=== PATIENT | female | born 1990 | race Caucasian/White ===

== ENCOUNTER 2019-10-11 01:29 | Emergency (ER) | payer SELFPAY ==
--- NOTE | ~2019-10-11 | XR_ITS ---
EXAMINATION: XR chest 2V DATE: 10/11/2019 02:00 INDICATION: Cough and shortness of breath TECHNIQUE: PA and lateral views of the chest are obtained. COMPARISON: 06/29/2018 FINDINGS: The lungs are free of acute opacities. There is no pleural effusion or pneumothorax. The ca rdiomediastinal silhouette is normal. The visualized bones and soft tissues are unremarkable. IMPRESSION: 1. No acute cardiopulmonary abnormality. Reviewed, dictated and finalized at location A.
[2019-10-11 01:30] VITALS: BP 178/103; PULSE 90; RESP 16; TEMP 36.1; O2SAT 100
[2019-10-11 01:41] VITALS: O2SAT 99
--- NOTE | 2019-10-11 01:43 | ECG_ITS ---
Measurements Intervals [place] Rate: 75 P: 41 AL: 186 QRS: 10 QRSD: 94 T: 25 QT: 368 QTc: 412 Interpretive Statements SINUS RHYTHM DELAYED PRECORDIAL R/S TRANSITION ST ELEVATION IN ANTEROLATERAL LEADS- PROBABLY EARLY REPOLARIZATION BASELINE WANDER- I, II, V4-V6 BORDERLINE ECG Electronically Signed On 10-11-2019 10:03:37 CDT by Jarad Vallejo D.O.
[2019-10-11 01:54] LABS: Basophils Percent Auto 0.4 % (0.2-1.2); Eosinophils Absolute Auto 0.2 K/mm3 (0-0.3); Eosinophils Percent Auto 2.2 % (0-4.4); Hematocrit 43.6 % (37.0-47.0); Immature Granulocyte Absolute 0.03 K/mm3 (0.00-0.031); Immature Granulocyte Percent A 0.3 % (0-0.5); Lymphocytes Absolute Auto 2.76 K/mm3 (0.9-3.2); Lymphocytes Percent Auto 26.3 % (18.3-44.2); Mean Corpuscular HGB Conc 34.4 g/dl (32-36); Mean Corpuscular Volume 84.3 fl (80-100); Monocytes Absolute Auto 0.8 K/mm3 (0.1-0.6); Monocytes Percent Auto 7.3 % (2.6-8.5); Neutrophils Absolute Auto 6.7 K/mm3 (1.3-6.7); Neutrophils Percent Auto 63.5 % (45.5-73.1); Platelet Count Result 246 k/mm3 (150-375); Red Blood Count 5.17 M/mm3 (4.2-5.4); Red Cell Distribution Width 13.2 % (11.5-14.5); White Blood Count 10.5 K/mm3 (4.5-10.0)
[2019-10-11 02:16] LABS: Anion Gap 9 mmol/L (8-16); Blood Urea Nitrogen 13 mg/dL (7-17); Calcium 9.4 mg/dL (8.4-10.2); Carbon Dioxide 25 mmol/L (22-30); Chloride 105 mmol/L (98-107); Estimated Glomerular Filt Rate > 60; Glucose 108 mg/dL (65-105); Potassium 3.9 mmol/L (3.4-5.0); Sodium 139 mmol/L (137-145)
--- NOTE | 2019-10-11 04:57 | ED.URI ---
HPI - URI/Sore Throat General Chief Complaint: Upper Respiratory Infection Stated Complaint: chest congestion Time Seen by Provider: 10/11/19 03:02 History of Present Illness HPI Narrative: Patient is a 29-year-old female who presents the ER with cough and shortness of breath. Reports she is had a URI for several days with congestion postnasal drip. Feels like it moved down into her chest. Brother had similar symptoms. He is not known to be COVID positive. No change in smell or taste. Reports she gets bronchitis yearly and this feels similar. Related Data Allergies Allergy/AdvReac Type Severity Reaction Status Date / Time No Known Allergies Allergy Unverified 06/29/18 18:36 Review of Systems Review of Systems: All systems reviewed & are unremarkable except as noted in HPI and below Constitutional: Constitutional: Denies chills, Denies fever(s) and Denies weakness ENT: Reports nasal congestion and Denies sore throat Cardiovascular: Cardiovascular: Denies chest pain and Denies radiating jaw, neck or arm pain Respiratory: Respiratory: Reports cough, Denies dyspnea and Reports wheezing PMFSH Past Medical History Medical History (Updated 10/11/19 @ 05:02 by Gareth Lemus MD) Anxiety Depression Hypertension Surgical History Surgical History (Updated 10/11/19 @ 04:59 by Gareth Lemus MD) No pertinent past surgical history Family History Family History (Updated 01/26/17 @ 09:13 by DOCTOR UNKNOWN) Other Hypertension Social History Social History Smoking status: Current every day smoker Alcohol intake: current Gender identity (if verbalized by the patient): Female Exam Narrative: Exam Narrative: GENERAL: Well-appearing, well-nourished, and in no acute distress. HEAD: Normocephalic, atraumatic. ENT: Mucous membranes moist. CHEST: Clear to auscultation. No respiratory distress. HEART: Regular rate and rhythm. Normal peripheral pulses. EXTREMITIES: Normal range of motion. No edema. NEURO: Alert and oriented x3. PSYCH: Normal mood and affect. Course Course Emergency Course: Unremarkable evaluation due to patient symptoms similar to previous pancreas we will start her on albuterol and prednisone for home. Vital Signs Vital signs: Vital Signs Temperature 97 F L 10/11/19 01:30 Pulse Rate 90 10/11/19 01:30 Respiratory Rate 16 10/11/19 01:30 Blood Pressure 178/103 H 10/11/19 01:30 Pulse Oximetry 100 10/11/19 01:30 Temperature 97 F L 10/11/19 01:30 Pulse Rate 90 10/11/19 01:30 Respiratory Rate 16 10/11/19 01:30 Blood Pressure 178/103 H 10/11/19 01:30 Pulse Oximetry 99 10/11/19 01:41 MDM - URI/Sore Throat Lab Data Result diagrams: 10/11/19 01:45 10/11/19 01:45 Labs: Lab Results 10/11/19 10/11/19 Range/Units 01:45 01:45 WBC 10.5 H (4.5-10.0) K/mm3 RBC 5.17 (4.2-5.4) M/mm3 Hgb 15.0 (12.0-15.0) g/dL Hct 43.6 (37.0-47.0) % MCV 84.3 (80-100) fl MCH 29.0 (26-34) pg MCHC 34.4 (32-36) g/dl RDW 13.2 (11.5-14.5) % Plt Count 246 (150-375) k/mm3 MPV 10.0 (7.4-10.4) fl Immature Gran % (Auto) 0.3 (0-0.5) % Neut % (Auto) 63.5 (45.5-73.1) % Lymph % (Auto) 26.3 (18.3-44.2) % Garden % (Auto) 7.3 (2.6-8.5) % Eos % (Auto) 2.2 (0-4.4) % Baso % (Auto) 0.4 (0.2-1.2) % Lymph # (Auto) 2.76 (0.9-3.2) K/mm3 Garden # (Auto) 0.8 H (0.1-0.6) K/mm3 Eos # (Auto) 0.2 (0-0.3) K/mm3 Baso # (Auto) 0.0 (0.0-0.1) K/mm3 Abs Immat Gran (auto) 0.03 (0.00-0.031) K/mm3 Absolute Neuts (auto) 6.7 (1.3-6.7) K/mm3 Absolute Nucleated RBC 0.0 (0.0-0.012) K/mm3 Nucleated RBC % 0.0 (0.0-0.2) % Sodium 139 (137-145) mmol/L Potassium 3.9 (3.4-5.0) mmol/L Chloride 105 (98-107) mmol/L Carbon Dioxide 25 (22-30) mmol/L Anion Gap 9 (8-16) mmol/L BUN 13 (7-17) mg/dL Creatinine 0.50 L (0.7-1.0) mg/dL Estim Creat Clear Calc Not Reporta
[2019-10-11 05:13] VITALS: BP 132/78; PULSE 73; RESP 16; O2SAT 99
== END 2019-10-11 05:14 | disposition home or self-care (01) ==
PROVIDERS: Emergency Provider Emergency Medicine
DX: J40 Bronchitis, not specified as acute or chronic (principal); I10 Essential (primary) hypertension; F17.200 Nicotine dependence, unspecified, uncomplicated; R94.31 Abnormal electrocardiogram [ECG] [EKG]
CPT/HCPCS: 36415; 71046; 80048; 85025; 93005; 99284

== ENCOUNTER 2021-01-02 02:37 | Emergency (ER) | payer SELFPAY ==
[2021-01-02 02:43] VITALS: BP 149/106; PULSE 77; RESP 18; TEMP 36.5; O2SAT 98
--- NOTE | 2021-01-02 03:34 | ED.PSYCH ---
HPI - Psych General Chief Complaint: Psychiatric Symptoms Stated Complaint: Anxiety, depression Time Seen by Provider: 01/02/21 02:44 Source: patient and RN notes reviewed Mode of arrival: ambulatory Limitations: no limitations History of Present Illness HPI Narrative: This is a 30 year old female who presents for anxiety and depression. She reports history of anxiety and depression for years. Tonight she came to ER because she was having palpitations, racing thoughts, extremity tingling. She felt like she was having panic attacks. She also reports depression over the past 2- 3 months. She is having spells of crying and sleeping alot. She states she does not have suicidal thoughts or homicidal thoughts. She has no plan of harming herself. She was placed on Zoloft 2 years ago but she only took the medication for 2 days. She denies drinking alcohol or drug use. She does smoke cigarettes. Related Data Allergies Allergy/AdvReac Type Severity Reaction Status Date / Time No Known Allergies Allergy Unverified 01/02/21 02:53 Review of Systems Review of Systems: All systems reviewed & are unremarkable except as noted in HPI and below PMFSH Past Medical History Medical History Anxiety Depression Hypertension Surgical History Surgical History No pertinent past surgical history Family History Family History (Updated 01/26/17 @ 09:13 by DOCTOR UNKNOWN) Other Hypertension Social History Social History Smoking status: Current every day smoker Alcohol intake: current Substance use type: does not use Gender identity (if verbalized by the patient): Female Exam Const: General: no acute distress and alert Orientation/consciousness: patient oriented x3 HENMT: Head: normocephalic and atraumatic Face and sinus: face symmetric Mouth: Yes Normal oral and palatal mucosa present, Yes lip normal, Yes tongue normal, Yes oropharynx normal and Yes moist mucous membranes Throat: posterior oropharynx normal, tonsils normal and uvula midline Eyes: EOM: EOMs intact bilaterally Resp: Effort & Inspection: normal respiratory effort and no retractions Auscultation: clear to auscultation bilaterally Cardio: Rate: regular rate Rhythm: regular rhythm Heart sounds: no murmurs GI: GI Palp: Yes Soft to palpation, No Tenderness to palpation present (GI) and No Guarding due to palpation present (GI) Auscultation: normal bowel sounds Skin: General skin exam: normal color Rashes: no rashes Neuro: General: moves all extremities and CN's II-XI intact bilaterally Extrem: General: normal to inspection Psych: Appearance: grossly normal and well kempt Mental Status: mental status grossly normal Affect: normal affect Attitude: cooperative Thought content: Yes Normal thought content present Course Reevaluation(s) Reevaluation #1: Patient is not suicidal or homicidal. She does not need inpatient evaluation at this time. She will be given resources and given vistaril. I stressed that she needs to follow up with counselor, primary care provider or psychiatrist. Date: 01/02/21 Time: 03:38 Vital Signs Vital signs: Vital Signs Temperature 97.7 F 01/02/21 02:43 Pulse Rate 77 01/02/21 02:43 Respiratory Rate 18 01/02/21 02:43 Blood Pressure 149/106 H 01/02/21 02:43 Pulse Oximetry 98 01/02/21 02:43 Temperature 97.7 F 01/02/21 02:43 Pulse Rate 80 01/02/21 03:52 Respiratory Rate 16 01/02/21 03:52 Blood Pressure 133/95 H 01/02/21 03:52 Pulse Oximetry 99 01/02/21 03:52 Discharge Plan Discharge Clinical Impression: Anxiety Patient Disposition: Home, Self-Care Condition: Stable Instructions: Antibiotic Form, Depression (ED), Anxiety (ED) Additional Instructions: Please follow up with given resources in order to get help. If you start having suicidal thoughts o
[2021-01-02 03:52] VITALS: BP 133/95; PULSE 80; RESP 16; O2SAT 99
== END 2021-01-02 03:52 | disposition home or self-care (01) ==
PROVIDERS: Emergency Provider General Practice
DX: F41.9 Anxiety disorder, unspecified (principal); F32.A Depression, unspecified; I10 Essential (primary) hypertension; F17.210 Nicotine dependence, cigarettes, uncomplicated
CPT/HCPCS: 99283

== ENCOUNTER 2021-04-29 19:21 | Emergency (ER) | payer MEDICAID, SELFPAY ==
--- NOTE | ~2021-04-29 | XR_ITS ---
EXAMINATION: XR chest 2V EXAM DATE: 04/29/2021 20:28 INDICATION: Strep throat, congestion, tightness, mid chest pain persisting. TECHNIQUE: Frontal and lateral projections of the chest obtained and reviewed. Comparison is made to prior examination from 10/11/2019. FINDINGS: The lungs are clear. There are no pleural effusions. The cardiomediastinal silhouette is within normal limits. There is no pneumothorax suspected. The bones and soft tissues are unremarkab le. IMPRESSION: No acute cardiopulmonary findings. Reviewed, dictated and finalized at location G.
[2021-04-29 19:53] VITALS: BP 126/74; PULSE 91; RESP 18; TEMP 36.7; O2SAT 100
[2021-04-29 20:12] VITALS: BP 122/79; PULSE 74; RESP 25; O2SAT 96
[2021-04-29 20:18] VITALS: O2SAT 97
--- NOTE | 2021-04-29 20:39 | ED.URI ---
HPI - URI/Sore Throat General Chief Complaint: Upper Respiratory Infection Stated Complaint: recent strep diagnosis, has increased congestion Time Seen by Provider: 04/29/21 20:08 Source: patient Mode of arrival: ambulatory Limitations: no limitations History of Present Illness HPI Narrative: Patient is a 31-year-old female complaining of chest congestion, cough, productive, white/yellow sputum, and sore throat that started this past week, was seen at [facility], prescribe amoxicillin after testing positive for strep. Patient states that she is feeling better but I just want to make sure I do not need any more antibiotics , which she has 3 more days worth. Patient denies any chest pain, shortness of breath, abdominal pain, nausea, vomiting, diarrhea, fever or chills. Related Data Allergies Allergy/AdvReac Type Severity Reaction Status Date / Time No Known Allergies Allergy Verified 04/29/21 19:58 Review of Systems Review of Systems: Per HPI All systems reviewed & are unremarkable except as noted in HPI and below PMFSH Past Medical History Medical History Anxiety Depression Hypertension Surgical History Surgical History No pertinent past surgical history Family History Family History Other Hypertension Social History Social History Smoking status: Current every day smoker Alcohol intake: current Substance use type: does not use Gender identity (if verbalized by the patient): Female Exam Const: General: cooperative, healthy appearing, comfortable, no acute distress, well developed, alert and awake; No confusion Orientation/consciousness: oriented to person, oriented to place, oriented to time, patient oriented x3 and No confusion Limitations: no limitations HENMT: Head: normal to inspection, normocephalic and atraumatic Ears: hearing grossly normal bilaterally, TM normal on the right and TM normal on the left General nose exam: Normal external nose present, Normal nares present and No nasal discharge present Face and sinus: normal facial exam Mouth: Yes Normal oral and palatal mucosa present, Yes lip normal, Yes tongue normal and Yes oropharynx normal Throat: posterior oropharynx normal, tonsils normal and uvula midline Eyes: General: appearance normal, both eyes and all related structures Pupils: Equal, round and reactive pupils present EOM: EOMs intact bilaterally Neck: Neck: normal visual inspection, full ROM, no lymphadenopathy and no meningeal signs Chest: Chest palpation & inspection: normal inspection of the chest Resp: Effort & Inspection: normal respiratory effort, able to speak in complete sentences, no respiratory distress and not tachypneic Auscultation: clear to auscultation bilaterally, no crackles, no rales, no rhonchi and no wheezes Cardio: Rate: regular rate Rhythm: regular rhythm GI: Inspection: normal to inspection GI Palp: No abdominal tenderness, Yes Soft to palpation, No Tenderness to palpation present (GI), No Guarding due to palpation present (GI), No Rigid due to palpation and No Rebound tenderness present Auscultation: normal bowel sounds : General: Yes no CVA tenderness Back/Spine/Pelvis: Back: no CVA tenderness Skin: General skin exam: normal color, no rashes or lesions noted, elasticity normal and turgor normal Neuro: General: oriented to person, oriented to place, oriented to time, patient oriented x3, tone normal, moves all extremities, Normal light touch and pain sensation, no meningeal signs, no focal motor deficits, CN's II-XI intact bilaterally and No confusion Cranial nerves: Yes Equal, round and reactive pupils present Speech: No Abnormal speech present Sensory Exam: No Sensory deficit (Neuro) Extrem: General: normal to inspection,
[2021-04-29 21:26] VITALS: PULSE 77; RESP 19; O2SAT 97
[2021-04-29 21:30] VITALS: PULSE 78; RESP 22; O2SAT 98
== END 2021-04-29 22:22 | disposition home or self-care (01) ==
LOC: ANHED 20:49
PROVIDERS: Emergency Provider Emergency Medicine
DX: J06.9 Acute upper respiratory infection, unspecified (principal); I10 Essential (primary) hypertension; F41.9 Anxiety disorder, unspecified; F32.A Depression, unspecified; F17.200 Nicotine dependence, unspecified, uncomplicated
CPT/HCPCS: 71046; 99283

== ENCOUNTER 2021-11-20 09:34 | Emergency (ER) | payer BC, SELFPAY ==
--- NOTE | ~2021-11-20 | XR_ITS ---
EXAMINATION: XR chest 1V portable DATE: 11/20/2021 10:11 INDICATION: Upper respiratory infection. Cough. TECHNIQUE: A single frontal view of the chest was obtained. COMPARISON: Chest 2 views 04/29/2021, CT abdomen and pelvis 06/29/2018 FINDINGS: The chest demonstrates clear lungs without pneumonia, pleural effusion, or pneumothorax. Th e heart size is normal. IMPRESSION: 1. No acute cardiopulmonary disease. Reviewed, dictated and finalized at location A.
[2021-11-20 09:50] VITALS: BP 129/83; PULSE 73; RESP 16; TEMP 37.1; O2SAT 98
--- NOTE | 2021-11-20 10:08 | ED.URI ---
HPI - URI/Sore Throat General Chief Complaint: Upper Respiratory Infection <CANDY Vargas Last Filed: 11/20/21 10:45> Stated Complaint: URI <CANDY Vargas Last Filed: 11/20/21 10:45> Time Seen by Provider: 11/20/21 09:44 <CANDY Vargas Last Filed: 11/20/21 10:45> Source: patient <CANDY Vargas Last Filed: 11/20/21 10:45> Mode of arrival: ambulatory <CANDY Vargas Last Filed: 11/20/21 10:45> Limitations: no limitations <CANDY Vargas Last Filed: 11/20/21 10:45> History of Present Illness HPI Narrative: Patient is a 31-year-old female who presents to the ED with report of upper respiratory symptoms. Patient reports having symptoms since last , 1 week ago. She complains of myalgias, headache, intermittent nausea, cough, congestion, rib pain with coughing. She denies sore throat, fever, chest pain, difficulty breathing. She has tried several OTC tx's w/o relief. Patient tested negative for Strep/COVID at outside hospital 3 days ago. Patient states she has the symptoms several times a year and requires amoxicillin and prednisone. <CANDY Vargas Last Filed: 11/20/21 10:45> Related Data Home Medications: Home Medications Medication Instructions Recorded Confirmed clonazepam 0.5 mg tablet mg 11/20/21 lisinopril 10 mg tablet mg 11/20/21 pantoprazole 40 mg tablet,delayed mg PO 11/20/21 release risperidone 3 mg tablet mg 11/20/21 sertraline 100 mg tablet mg 11/20/21 <CANDY Vargas Last Filed: 11/20/21 10:45> Allergies/Adverse Reactions: Allergies Allergy/AdvReac Type Severity Reaction Status Date / Time No Known Allergies Allergy Verified 11/20/21 09:53 <CANDY Vargas Last Filed: 11/20/21 10:45> Review of Systems Review of Systems: CONSTITUTIONAL: Denies fever, chills, or sweats. ENT: Reports congestion. Denies sore throat. CARDIOVASCULAR: Denies chest pain. RESPIRATORY: Reports cough. Denies dyspnea. GASTROINTESTINAL: Reports nausea. Denies abdominal pain, vomiting, or diarrhea. MUSCULOSKELETAL: Reports rib pain with coughing, myalgias. NEUROLOGIC: Reports headache. Denies numbness or weakness. <Teresa Donahue PA-C - Last Filed: 11/20/21 10:45> All systems reviewed & are unremarkable except as noted in HPI and below <Teresa Donahue PA-C - Last Filed: 11/20/21 10:45> [facility] Past Medical History Medical History: Medical History Anxiety Depression Hypertension <Teresa Donahue PA-C - Last Filed: 11/20/21 10:45> Surgical History Surgical History: Surgical History No pertinent past surgical history <Teresa Donahue PA-C - Last Filed: 11/20/21 10:45> Family History Family History: Family History Other Hypertension <Teresa Donahue PA-C - Last Filed: 11/20/21 10:45> Social History Social History: Social History Smoking status: Current every day smoker Alcohol intake: current Substance use type: does not use Gender identity (if verbalized by the patient): Female <Teresa Donahue PA-C - Last Filed: 11/20/21 10:45> Exam Narrative: GENERAL: Well appearing, obese, non-toxic, in no acute distress. HEAD: Normocephalic, atraumatic. EYES: PERRL/EOMI, conjunctivae clear bilaterally. No drainage or injection. NOSE: Normal, no drainage. THROAT: Pharynx clear, no exudate. MMs moist. NECK: Supple. No adenopathy, no masses. RESPIRATORY: Airway patent, respirations nonlabored. Clear to auscultation bilaterally, no rales, rhonchi, wheezing. CARDIOVASCULAR: Regular rate and rhythm without murmurs, rubs, or gallops.
[2021-11-20] MEDS: IBUPROFEN 600 MG TABLET PO (11:04)
[2021-11-20 11:05] LABS: SARS-CoV-2 RNA PCR Negative
[2021-11-20 11:09] VITALS: RESP 16
== END 2021-11-20 11:09 | disposition home or self-care (01) ==
PROVIDERS: Physician Assistant; Emergency Provider Emergency Medicine
DX: J06.9 Acute upper respiratory infection, unspecified (principal); Z20.822 Contact with and (suspected) exposure to COVID-19; I10 Essential (primary) hypertension; F41.9 Anxiety disorder, unspecified; F32.A Depression, unspecified; F17.200 Nicotine dependence, unspecified, uncomplicated
CPT/HCPCS: 71045; 99283; A9270; C9803; U0003; U0005

== ENCOUNTER 2021-12-24 01:08 | Emergency (ER) | payer BC, SELFPAY ==
--- NOTE | ~2021-12-24 | XR_ITS ---
EXAMINATION: XR chest 2V DATE: 12/24/2021 01:42 INDICATION: Chest pain. Shortness of breath. Cough. TECHNIQUE: Frontal and lateral views of the chest were obtained. COMPARISON: Chest single view 11/20/2021, CT abdomen and pelvis 06/29/2018 FINDINGS: There is no pneumonia, pleural effusion, or pneumothorax. The heart size is normal. IMPRESSION: 1. No acute cardiopulmonary disease. Reviewed, dictated and finalized at location A. L ENGINEER
--- NOTE | 2021-12-24 01:09 | ECG_ITS ---
Measurements Intervals [place] Rate: 83 P: 27 MD: 164 QRS: 24 QRSD: 97 T: 48 QT: 359 QTc: 424 Interpretive Statements SINUS RHYTHM BASELINE ARTIFACT- V4-V5 NORMAL ECG COMPARED TO ECG 10/11/2019 01:46:38 NO SIGNIFICANT CHANGES Electronically Signed On 12-24-2021 12:04:54 OWNER OPERATOR by Jarad Vallejo D.O.
[2021-12-24 01:19] VITALS: BP 142/87; PULSE 90; RESP 15; TEMP 36.4; O2SAT 98
--- NOTE | 2021-12-24 01:58 | ED.GENADULT ---
HPI - General Adult General Chief complaint: Upper Respiratory Infection Stated complaint: chest tightness, SOB, coughing Time Seen by Provider: 12/24/21 01:48 History of Present Illness HPI narrative: 31-year-old female history of hypertension schizoaffective disorder presents to the emergency room for evaluation of cough, sinus congestion, postnasal drip for 4 days. Patient states she has been taking Mucinex and Tylenol for the cough. Reports the cough is painful and has been taking a lot of clear phlegm. Patient reports rib cage pain in her flanks bilaterally denies fever Related Data Home Medications Medication Instructions Recorded Confirmed clonazepam 0.5 mg tablet mg 11/20/21 lisinopril 10 mg tablet mg 11/20/21 pantoprazole 40 mg tablet,delayed mg PO 11/20/21 release risperidone 3 mg tablet mg 11/20/21 sertraline 100 mg tablet mg 11/20/21 Allergies Allergy/AdvReac Type Severity Reaction Status Date / Time No Known Allergies Allergy Verified 11/20/21 09:53 Review of Systems Review of Systems: CONSTITUTIONAL: Denies fever, chills, or sweats. EYES: Denies visual changes, redness, or discharge. ENT: Reports rhinorrhea, congestion CARDIOVASCULAR: Denies chest pain, palpitations, or edema. RESPIRATORY: Reports painful cough GASTROINTESTINAL: Denies abdominal pain, nausea, vomiting, or diarrhea. GENITOURINARY: Denies dysuria or hematuria. SKIN: Denies rash or itching. MUSCULOSKELETAL: Denies back pain, joint pain, or myalgia. NEUROLOGIC: Denies headache, numbness, dizziness, or weakness. PSYCHIATRIC: Denies anxiety or depression. [facility] Past Medical History Medical History Anxiety Depression Hypertension Surgical History Surgical History No pertinent past surgical history Family History Family History Other Hypertension Social History Social History Smoking status: Current every day smoker Alcohol intake: current Substance use type: does not use Gender identity (if verbalized by the patient): Female Exam Narrative: GENERAL: Well-appearing, well-nourished, no physical limitations, and in no acute distress. HEAD: Normocephalic, atraumatic. EYES: Conjunctivae normal, PERRLA and EOMI. ENT: External nose normal, Nares clear, no rhinorrhea or epistaxis. Mucous membranes moist. Oropharynx without tonsillar hypertrophy exudate or other lesions. External ears normal, bilateral TMs normal bilaterally NECK: Supple.No adenopathy or masses. CHEST: Clear to auscultation. No respiratory distress. No wheezes rales or rhonchi. tenderness to bilateral chest wall. HEART: Regular rate and rhythm. No murmur heard. Normal peripheral pulses. ABDOMEN: Soft, nontender, nondistended, normal active bowel sounds. EXTREMITIES: Normal range of motion. No edema. No clubbing or cyanosis SKIN: Warm, dry, no rash. No noted wounds NEURO: No focal deficits. Alert and oriented x3. MAEW. CN's II-XI intact bilaterally, normal gait PSYCH: Cooperative. Normal mood and affect. Course Vital Signs Vital signs: Vital Signs Temperature 36.4 C 12/24/21 01:19 Pulse Rate 90 12/24/21 01:19 Respiratory Rate 15 12/24/21 01:19 Blood Pressure 142/87 H 12/24/21 01:19 Pulse Oximetry 98 12/24/21 01:19 Oxygen Delivery Room Air 12/24/21 01:19 Temperature 36.4 C 12/24/21 01:19 Pulse Rate 78 12/24/21 02:19 Respiratory Rate 16 12/24/21 02:19 Blood Pressure 142/87 H 12/24/21 01:19 Pulse Oximetry 97 12/24/21 02:08 Oxygen Delivery Room Air 12/24/21 02:08 Medical Decision Making Vital Signs Vital Signs: Vital Signs Temperature 36.4 C 12/24/21 01:19 Pulse Rate 90 12/24/21 01:19 Respiratory Rate 15 12/24/21 01:19 Blood Pressure 142/87 H
[2021-12-24] MEDS: IPRATROPIUM BR 0.02% INH SOLN 0.5 MG/2.5 ML VIAL INHALATION (02:03)
[2021-12-24] MEDS: ALBUTEROL SULFATE NEB 2.5 MG/3 ML INH INHALATION (02:03)
[2021-12-24 02:07] VITALS: PULSE 86; RESP 16
[2021-12-24 02:08] VITALS: O2SAT 97
--- NOTE | 2021-12-24 02:08 | PCRCNOTE ---
pt states she is taking Symbicort as a rescue inhaler. pt advised that this is not a rescue inhaler and to talk with her provider about acquiring albuterol instead.
[2021-12-24 02:19] VITALS: PULSE 78; RESP 16
[2021-12-24 02:35] LABS: Influenza A QL RT-PCR Negative (Negative); Influenza B QL RT-PCR Negative (Negative); RSV RNA, RT-PCR Negative (Negative); SARS-CoV-2 RNA PCR Negative
== END 2021-12-24 02:41 | disposition home or self-care (01) ==
LOC: ANHED 02:00
PROVIDERS: Emergency Provider Nurse Practitioner Family
DX: J06.9 Acute upper respiratory infection, unspecified (principal); Z20.822 Contact with and (suspected) exposure to COVID-19; F17.210 Nicotine dependence, cigarettes, uncomplicated; F41.9 Anxiety disorder, unspecified; F32.9 Major depressive disorder, single episode, unspecified; I10 Essential (primary) hypertension
CPT/HCPCS: 71046; 87637; 93005; 94640; 96372; 99283; J1100

== ENCOUNTER 2021-12-26 21:09 | Emergency (ER) | payer BC, SELFPAY ==
[2021-12-26 21:14] VITALS: BP 143/85; PULSE 85; RESP 16; TEMP 36.6; O2SAT 97
--- NOTE | 2021-12-26 21:27 | ED.GENADULT ---
HPI - General Adult General Chief complaint: Unspecified Stated complaint: sore throat x 3 days Time Seen by Provider: 12/26/21 21:12 History of Present Illness HPI narrative: 31-year-old female history of anxiety, hypertension, GERD, bipolar presents to the emergency room for sore throat for 3 days and a productive cough. Patient was seen here 2 days ago and diagnosed with a URI. Patient states he has been taking her inhaler, steroids and Sudafed with no relief. She states she is seeing white spots on the back of her throat. Related Data Home Medications Medication Instructions Recorded Confirmed clonazepam 0.5 mg tablet mg 11/20/21 lisinopril 10 mg tablet mg 11/20/21 pantoprazole 40 mg tablet,delayed mg PO 11/20/21 release risperidone 3 mg tablet mg 11/20/21 sertraline 100 mg tablet mg 11/20/21 Allergies Allergy/AdvReac Type Severity Reaction Status Date / Time No Known Allergies Allergy Verified 12/26/21 21:11 Review of Systems Review of Systems: CONSTITUTIONAL: Denies fever, chills, or sweats. EYES: Denies visual changes, redness, or discharge. ENT: Reports rhinorrhea, congestion, and sore throat CARDIOVASCULAR: Denies chest pain, palpitations, or edema. RESPIRATORY: Reports cough GASTROINTESTINAL: Denies abdominal pain, nausea, vomiting, or diarrhea. GENITOURINARY: Denies dysuria or hematuria. SKIN: Denies rash or itching. MUSCULOSKELETAL: Denies back pain, joint pain, or myalgia. NEUROLOGIC: Denies headache, numbness, dizziness, or weakness. PSYCHIATRIC: Denies anxiety or depression. [facility] Past Medical History Medical History Anxiety Depression Hypertension Surgical History Surgical History No pertinent past surgical history Family History Family History Other Hypertension Social History Social History Smoking status: Current every day smoker Alcohol intake: current Substance use type: does not use Gender identity (if verbalized by the patient): Female Exam Narrative: GENERAL: Well-appearing, well-nourished, no physical limitations, and in no acute distress. HEAD: Normocephalic, atraumatic. EYES: Conjunctivae normal, PERRLA and EOMI. ENT: External nose normal, Nares clear, no rhinorrhea or epistaxis. Mucous membranes moist. Oropharynx without tonsillar hypertrophy exudate, tonsillar stones present. External ears normal, bilateral TMs normal bilaterally NECK: Supple. No adenopathy or masses. CHEST: Clear to auscultation. No respiratory distress. No wheezes rales or rhonchi. HEART: Regular rate and rhythm. No murmur heard. Normal peripheral pulses. EXTREMITIES: Normal range of motion. No edema. No clubbing or cyanosis SKIN: Warm, dry, no rash. No noted wounds NEURO: No focal deficits. Alert and oriented x3. MAEW. CN's II-XI intact bilaterally, normal gait PSYCH: Cooperative. Normal mood and affect. Course Vital Signs Vital signs: Vital Signs Temperature 36.6 C 12/26/21 21:14 Pulse Rate 85 12/26/21 21:14 Respiratory Rate 16 12/26/21 21:14 Blood Pressure 143/85 H 12/26/21 21:14 Pulse Oximetry 97 12/26/21 21:14 Oxygen Delivery Room Air 12/26/21 21:14 Temperature 36.6 C 12/26/21 21:14 Pulse Rate 85 12/26/21 21:14 Respiratory Rate 16 12/26/21 21:14 Blood Pressure 143/85 H 12/26/21 21:14 Pulse Oximetry 97 12/26/21 21:14 Oxygen Delivery Room Air 12/26/21 21:14 Medical Decision Making Vital Signs Vital Signs: Vital Signs Temperature 36.6 C 12/26/21 21:14 Pulse Rate 85 12/26/21 21:14 Respiratory Rate 16 12/26/21 21:14 Blood Pressure 143/85 H 12/26/21 21:14 Pulse Oximetry 97 12/26/21 21:14 Oxygen Delivery Room Air 12/26/21 21:14 Temperature 36.6 C 12/26/21 21:14 Pulse
[2021-12-26 22:07] LABS: Monoscreen Negative (Negative); Negative Monotest Control Negative (Negative); Positive Monotest Control Positive (Positive)
[2021-12-26 22:15] LABS: Influenza A QL RT-PCR Negative (Negative); Influenza B QL RT-PCR Negative (Negative); RSV RNA, RT-PCR Negative (Negative); SARS-CoV-2 RNA PCR Negative
== END 2021-12-26 22:38 | disposition home or self-care (01) ==
PROVIDERS: Emergency Provider Nurse Practitioner Family
DX: J06.9 Acute upper respiratory infection, unspecified (principal); J35.8 Other chronic diseases of tonsils and adenoids; I10 Essential (primary) hypertension; F41.9 Anxiety disorder, unspecified; F32.9 Major depressive disorder, single episode, unspecified; F17.200 Nicotine dependence, unspecified, uncomplicated; Z20.822 Contact with and (suspected) exposure to COVID-19
CPT/HCPCS: 36415; 86308; 87081; 87637; 87880; 99283

== ENCOUNTER 2022-01-12 09:17 | Emergency (ER) | payer BC, SELFPAY ==
--- NOTE | ~2022-01-12 | XR_ITS ---
XR chest 2V DATE: 01/12/2022 10:56 INDICATION: Right lower rib pain. Upper respiratory infection symptoms for 4 weeks TECHNIQUE: PA and lateral views COMPARISON: 12/24/2021 PA and lateral chest FINDINGS: Normal heart size. No hilar or mediastinal enlargement. No pulmonary infiltrate or consolid ation, pleural effusion or pulmonary vascular congestion or pneumothorax. IMPRESSION: No active cardiopulmonary disease Reviewed, dictated and finalized at location B. [employer]BER
--- NOTE | 2022-01-12 09:46 | ED.BACK ---
HPI - Back Pain/Injury General Chief Complaint: Back Pain/Injury Stated Complaint: right flank pain Time Seen by Provider: 01/12/22 09:21 Source: patient Mode of arrival: ambulatory Limitations: no limitations History of Present Illness HPI Narrative: Patient is a 31 y/o female who presents to the ED with c/o right lower rib pain. Patient reports she has been sick for the last 4 weeks with upper respiratory symptoms. She was diagnosed with influenza 3 weeks ago and bronchitis. She has since finished a course of azithromycin and a Medrol Dosepak. She states her symptoms of cough, congestion, runny nose have improved, but she has now been having pain in her right lower anterior ribs, upper abdomen over the last few days. Pain worse with movement, taking deep breaths, coughing, sneezing. She has tried taking ibuprofen and using a heating pad with minimal relief. She denies any difficulty breathing, chest pain, nausea, vomiting, diarrhea, constipation, urinary symptoms. Related Data Home Medications Medication Instructions Recorded Confirmed clonazepam 0.5 mg tablet mg 11/20/21 lisinopril 10 mg tablet mg 11/20/21 pantoprazole 40 mg tablet,delayed mg PO 11/20/21 release risperidone 3 mg tablet mg 11/20/21 sertraline 100 mg tablet mg 11/20/21 Allergies Allergy/AdvReac Type Severity Reaction Status Date / Time No Known Allergies Allergy Verified 12/26/21 21:11 Review of Systems Review of Systems: CONSTITUTIONAL: Denies fever, chills, or sweats. ENT: Denies rhinorrhea, congestion, sore throat. CARDIOVASCULAR: Denies chest pain. RESPIRATORY: Denies dyspnea. GASTROINTESTINAL: Reports right upper abdomen pain. Denies nausea, vomiting, or diarrhea. GENITOURINARY: Denies dysuria or hematuria. MUSCULOSKELETAL: Reports pain to right anterior lower ribs. All systems reviewed & are unremarkable except as noted in HPI and below PMFSH Past Medical History Medical History (Updated 01/12/22 @ 11:44 by Teresa Donahue PA-C) Anxiety Bronchitis Depression Gastritis GERD (gastroesophageal reflux disease) Hypertension Surgical History Surgical History No pertinent past surgical history Family History Family History Other Hypertension Social History Social History Smoking status: Current every day smoker Alcohol intake: current Substance use type: does not use Gender identity (if verbalized by the patient): Female Exam Narrative: GENERAL: Well appearing, obese, non-toxic, in no acute distress. HEAD: Normocephalic, atraumatic. NECK: Supple. No adenopathy, no masses. RESPIRATORY: Airway patent, respirations nonlabored. Clear to auscultation bilaterally, no rales, rhonchi, wheezing. No splinting. CARDIOVASCULAR: Regular rate and rhythm without murmurs, rubs, or gallops. Radial pulses 2+ and equal bilaterally. ABDOMINAL: Soft, no significant tenderness throughout upper abdomen, nondistended, no hepatosplenomegaly. Normoactive BS. MUSCULOSKELETAL: Moves all extremities. Strength/ROM intact without gross deformities. Point tenderness along R lower rib cage/anterior chest wall below right breast. SKIN: Warm, dry, normal color. No rashes. NEURO: A&O X3. Speech clear. Cranial nerves II-XII grossly intact. Steady gait. No ataxic movements. PSYCHIATRIC: Appropriate mood and affect. Normal interaction. Course Vital Signs Vital signs: Vital Signs Pulse Rate 84 01/12/22 11:48 Respiratory Rate 18 01/12/22 11:48 Blood Pressure 116/54 L 01/12/22 11:48 Pulse Oximetry 98 01/12/22 11:48 Pulse Rate 79 01/12/22 12:01 Respiratory Rate 16 01/12/22 12:01 Blood Pressure 109/53 L 01/12/22 12:01 Pulse Oximetry 96 01/12/22 12:01 MDM - Back Pain/Injury MDM Narrative Medical decision making narrative: Rosalina
[2022-01-12 10:36] LABS: Basophils Absolute Auto 0.1 K/mm3 (0.0-0.1); Basophils Percent Auto 0.4 % (0.2-1.2); Eosinophils Absolute Auto 0.2 K/mm3 (0-0.3); Eosinophils Percent Auto 1.9 % (0-4.4); Hematocrit 39.6 % (37.0-47.0); Hemoglobin 13.3 g/dL (12.0-15.0); Immature Granulocyte Absolute 0.05 K/mm3 (0.00-0.031); Immature Granulocyte Percent A 0.4 % (0-0.5); Lymphocytes Absolute Auto 1.83 K/mm3 (0.9-3.2); Lymphocytes Percent Auto 16.4 % (18.3-44.2); Mean Corpuscular HGB Conc 33.6 g/dl (32-36); Mean Corpuscular Hemoglobin 28.4 pg (26-34); Mean Corpuscular Volume 84.6 fl (80-100); Mean Platelet Volume 9.5 fl (7.4-10.4); Monocytes Absolute Auto 0.7 K/mm3 (0.1-0.6); Monocytes Percent Auto 6.2 % (2.6-8.5); Neutrophils Absolute Auto 8.3 K/mm3 (1.3-6.7); Neutrophils Percent Auto 74.7 % (45.5-73.1); Platelet Count Result 210 k/mm3 (150-375); Red Blood Count 4.68 M/mm3 (4.2-5.4); Red Cell Distribution Width 14.6 % (11.5-14.5); White Blood Count 11.2 K/mm3 (4.5-10.0)
[2022-01-12 10:38] LABS: Appearance Urine Clear (Clear); Bilirubin Urine Negative (Negative); Blood Urine Negative (Negative); Color Urine Yellow (Yellow); Glucose Urine UA Negative (Negative); Ketones Urine Negative (Negative); Leukocyte Esterase Ur 2+ LEU/UL (Negative); Nitrate Urine Negative (Negative); Protein Urine Negative (Negative); Urobilinogen Urine 0.2 mg/dL (<2.0)
[2022-01-12 10:44] LABS: Bacteria Urine Trace /hpf; RBC Urine 0-2 /hpf (0-2); Squamous Epithelial Cell Urine Moderate /hpf (Few)
[2022-01-12 10:46] LABS: Add Urine Microscopic? YES
[2022-01-12 10:51] LABS: Alanine Aminotransferase 22 U/L (6-35); Albumin Level 4.4 g/dL (3.5-5.1); Alkaline Phosphatase 90 U/L (38-126); Anion Gap 10 mmol/L (8-16); Aspartate Amino Transferase 23 U/L (14-36); Bilirubin,Total 0.6 mg/dL (0.2-1.3); Blood Urea Nitrogen 13 mg/dL (7-17); Calcium 8.6 mg/dL (8.4-10.2); Carbon Dioxide 23 mmol/L (22-30); Chloride 104 mmol/L (98-107); Estimated CRCL calculation 206 ml/min; Estimated Glomerular Filt Rate > 60; Glucose 133 mg/dL (65-110); Lipase 42 U/L (23-300); Sodium 137 mmol/L (137-145)
[2022-01-12 10:54] LABS: D Dimer 0.35 ug/mL (<0.48)
[2022-01-12 11:48] VITALS: BP 116/54; PULSE 84; RESP 18; O2SAT 98
[2022-01-12 12:01] VITALS: BP 109/53; PULSE 79; RESP 16; O2SAT 96
[2022-01-12] MEDS: KETOROLAC 30 MG/ML VIAL (*BKC) IV PUSH (12:08)
== END 2022-01-12 12:59 | disposition home or self-care (01) ==
PROVIDERS: Emergency Provider Physician Assistant
DX: R09.1 Pleurisy (principal); I10 Essential (primary) hypertension; K21.9 Gastro-esophageal reflux disease without esophagitis; F41.9 Anxiety disorder, unspecified; F32.A Depression, unspecified; F17.200 Nicotine dependence, unspecified, uncomplicated
CPT/HCPCS: 36415; 71046; 80053; 81001; 83690; 85025; 85380; 87086; 96374; 96375; 99284; J0131; J1885

== ENCOUNTER 2022-08-18 01:15 | Emergency (ER) | payer BC, SELFPAY ==
[2022-08-18] VITALS (8 sets, daily range): BP systolic 135–144; BP diastolic 85–87; PULSE 71–87; RESP 14–16; TEMP 36.4; O2SAT 92–98
--- NOTE | ~2022-08-18 | XR_ITS ---
Clinical Indication: Cough PA and lateral views of the chest: Comparison: 01/12/2022 Findings: The lungs are clear, without evidence of focal consolidation or pleural effusion. Cardiome diastinal silhouette is within normal limits. Bones and soft tissues are unremarkable. Impression: Normal chest. Reviewed, dictated and finalized at location . Impression: Normal chest.
--- NOTE | 2022-08-18 02:04 | ED.URI ---
HPI - URI/Sore Throat General Chief Complaint: Upper Respiratory Infection Stated Complaint: congestion Time Seen by Provider: 08/18/22 02:01 Source: patient and old records reviewed Mode of arrival: ambulatory Limitations: no limitations History of Present Illness HPI Narrative: Patient is a 32 y/o female who presents to the ED with c/o persistent cough. Patient reports she developed a productive cough around 08/07. She was seen at [facility] last Hitesh and diagnosed with bronchitis. She was prescribed a 7-day course of Levaquin, which she finished yesterday. Patient states her cough has since become less productive, though she still feels like she has mucus that she needs to bring up. Cough is worse at night and when she lays down flat. She has also been using Mucinex at home. Patient does report feeling occasionally short of breath. Denies any fevers, nausea, vomiting, chest pain. Patient states she develops bronchitis a few times each year. She is a daily smoker. Related Data Home Medications Medication Instructions Recorded Confirmed clonazepam 0.5 mg tablet mg 11/20/21 lisinopril 10 mg tablet mg 11/20/21 pantoprazole 40 mg tablet,delayed mg PO 11/20/21 release risperidone 3 mg tablet mg 11/20/21 sertraline 100 mg tablet mg 11/20/21 Allergies Allergy/AdvReac Type Severity Reaction Status Date / Time No Known Allergies Allergy Verified 08/18/22 01:24 Review of Systems Review of Systems: CONSTITUTIONAL: Denies fever, chills, or sweats. ENT: Denies rhinorrhea, congestion, sore throat. CARDIOVASCULAR: Denies chest pain, palpitations, or edema. RESPIRATORY: See HPI. GASTROINTESTINAL: Denies abdominal pain, nausea, vomiting. MUSCULOSKELETAL: Denies back pain, joint pain, or myalgia. All systems reviewed & are unremarkable except as noted in HPI and below PMFSH Past Medical History Medical History Anxiety Bronchitis Depression Gastritis GERD (gastroesophageal reflux disease) Hypertension Surgical History Surgical History No pertinent past surgical history Family History Family History Other Hypertension Social History Social History Smoking status: Current every day smoker Alcohol intake: current Substance use type: does not use Gender identity (if verbalized by the patient): Female Exam Narrative: GENERAL: Well appearing, obese with BMI of 37.6, non-toxic, in no acute distress. HEAD: Normocephalic, atraumatic. NECK: Supple. No adenopathy, no masses. RESPIRATORY: Airway patent, respirations nonlabored. Faint crackles in bases bilaterally, worse on R. No wheezing. CARDIOVASCULAR: Regular rate and rhythm without murmurs, rubs, or gallops. Peripheral pulses 2+ and equal bilaterally. ABDOMINAL: Soft, nontender, nondistended, no hepatosplenomegaly. Normoactive BS. MUSCULOSKELETAL: Moves all extremities. Strength/ROM intact without gross deformities. No edema. No calf tenderness. SKIN: Warm, dry, normal color. No rashes. NEURO: A&O X3. Speech clear. Cranial nerves II-XII grossly intact. Steady gait. No ataxic movements. PSYCHIATRIC: Appropriate mood and affect. Normal interaction. Course Vital Signs Vital signs: Vital Signs Temperature 36.4 C L 08/18/22 01:20 Pulse Rate 87 08/18/22 01:20 Respiratory Rate 16 08/18/22 01:20 Blood Pressure 144/85 H 08/18/22 01:20 Pulse Oximetry 96 08/18/22 01:20 Oxygen Delivery Room Air 08/18/22 01:20 Temperature 36.4 C L 08/18/22 01:20 Pulse Rate 75 08/18/22 04:20 Respiratory Rate 16 08/18/22 04:20 Blood Pressure 135/87 08/18/22 03:00 Pulse Oximetry 92 08/18/22 03:00 Oxygen Delivery Room Air 08/18/22 01:20 MDM - URI/Sore Throat
[2022-08-18] MEDS: IPRATROPIUM BR 0.02% INH SOLN 0.5 MG/2.5 ML VIAL INHALATION ×2 (02:42→04:10)
[2022-08-18] MEDS: LEVALBUTEROL NEB 1.25 MG/3 ML INHALATION (02:43)
[2022-08-18 03:01] LABS: Basophils Absolute Auto 0.1 K/mm3 (0.0-0.1); Basophils Percent Auto 0.5 % (0.2-1.2); Eosinophils Absolute Auto 0.1 K/mm3 (0-0.3); Eosinophils Percent Auto 0.6 % (0-4.4); Hemoglobin 13.5 g/dL (12.0-15.0); Immature Granulocyte Absolute 0.05 K/mm3 (0.00-0.031); Immature Granulocyte Percent A 0.4 % (0-0.5); Lymphocytes Absolute Auto 1.81 K/mm3 (0.9-3.2); Mean Corpuscular HGB Conc 33.8 g/dl (32-36); Monocytes Absolute Auto 0.5 K/mm3 (0.1-0.6); Monocytes Percent Auto 3.6 % (2.6-8.5); Neutrophils Absolute Auto 10.4 K/mm3 (1.3-6.7); Neutrophils Percent Auto 80.9 % (45.5-73.1); Platelet Count Result 222 k/mm3 (150-375); Red Blood Count 4.82 M/mm3 (4.2-5.4); Red Cell Distribution Width 14.6 % (11.5-14.5); White Blood Count 12.9 K/mm3 (4.5-10.0)
[2022-08-18 03:10] LABS: Alanine Aminotransferase 20 U/L (6-35); Albumin Level 4.4 g/dL (3.5-5.1); Alkaline Phosphatase 116 U/L (38-126); Anion Gap 7 mmol/L (8-16); Aspartate Amino Transferase 23 U/L (14-36); Bilirubin,Total 0.2 mg/dL (0.2-1.3); Blood Urea Nitrogen 13 mg/dL (7-17); Calcium 8.9 mg/dL (8.4-10.2); Carbon Dioxide 24 mmol/L (22-30); Chloride 108 mmol/L (98-107); Estimated CRCL calculation 168 ml/min; Estimated Glomerular Filt Rate > 60; Glucose 153 mg/dL (65-110); Potassium 4.2 mmol/L (3.4-5.0); Sodium 139 mmol/L (137-145)
[2022-08-18 03:36] LABS: Influenza A QL RT-PCR Negative (Negative); Influenza B QL RT-PCR Negative (Negative); SARS-CoV-2 RNA PCR Negative (Negative)
[2022-08-18] MEDS: ALBUTEROL SULFATE NEB 2.5 MG/3 ML INH INHALATION (04:11)
== END 2022-08-18 06:17 | disposition home or self-care (01) ==
PROVIDERS: Physician Assistant; Emergency Provider Emergency Medicine
DX: J18.9 Pneumonia, unspecified organism (principal); Z20.822 Contact with and (suspected) exposure to COVID-19; F41.9 Anxiety disorder, unspecified; F32.A Depression, unspecified; K21.9 Gastro-esophageal reflux disease without esophagitis; I10 Essential (primary) hypertension; F17.210 Nicotine dependence, cigarettes, uncomplicated
CPT/HCPCS: 36415; 71046; 80053; 85025; 87636; 94640; 99284

== ENCOUNTER 2022-11-20 00:26 | Emergency (ER) | payer BC, SELFPAY ==
[2022-11-20 00:35] VITALS: BP 145/89; PULSE 95; RESP 20; TEMP 36.9; O2SAT 97
[2022-11-20] MEDS: IBUPROFEN 400 MG TABLET 800 MG PO (02:50)
[2022-11-20] MEDS: ACETAMINOPHEN 500 MG TABLET 1000 MG PO (02:51)
[2022-11-20 02:56] VITALS: BP 128/78; PULSE 82; RESP 15; O2SAT 97
[2022-11-20 03:20] LABS: Appearance Urine Clear (Clear); Bilirubin Urine Negative (Negative); Blood Urine Negative (Negative); Color Urine Dark Yellow (Yellow); Glucose Urine UA Negative (Negative); Ketones Urine Negative (Negative); Leukocyte Esterase Ur Negative LEU/UL (Negative); Nitrate Urine Negative (Negative); Protein Urine Negative (Negative); Specific Grav Ur 1.028 (1.001-1.035); pH Urine 5.5 (5.0-9.0)
[2022-11-20 03:29] LABS: Add Urine Microscopic? NO
[2022-11-20 03:38] VITALS: RESP 20
[2022-11-20] MEDS: ALBUTEROL SULFATE NEB 2.5 MG/3 ML INH INHALATION (03:38)
--- NOTE | 2022-11-20 03:45 | ED.URI ---
HPI - URI/Sore Throat General Chief Complaint: Upper Respiratory Infection Stated Complaint: flu symptoms Time Seen by Provider: 11/20/22 02:38 Source: patient Mode of arrival: ambulatory Limitations: no limitations History of Present Illness HPI Narrative: 32-year-old female presents today with complaints of cough for 3 weeks body aches and not feeling well for about 1 day. Patient has a history of bronchitis. Patient denies fevers, nasal drainage. Does have an albuterol inhaler at home for shortness of breath currently denies any shortness of breath. Does also endorse some strong smelling urine but denies dysuria or urinary frequency. Related Data Home Medications Medication Instructions Recorded Confirmed clonazepam 0.5 mg tablet mg 11/20/21 lisinopril 10 mg tablet mg 11/20/21 pantoprazole 40 mg tablet,delayed mg PO 11/20/21 release risperidone 3 mg tablet mg 11/20/21 sertraline 100 mg tablet mg 11/20/21 Allergies Allergy/AdvReac Type Severity Reaction Status Date / Time No Known Allergies Allergy Verified 08/18/22 01:24 Review of Systems Review of Systems: All systems reviewed & are unremarkable except as noted in HPI and below PMFSH Past Medical History Medical History Anxiety Bronchitis Depression Gastritis GERD (gastroesophageal reflux disease) Hypertension Surgical History Surgical History No pertinent past surgical history Family History Family History Other Hypertension Social History Social History Smoking status: Current every day smoker Alcohol intake: current Substance use type: does not use Gender identity (if verbalized by the patient): Female Exam Const: General: cooperative, healthy appearing, comfortable, no acute distress and well developed Orientation/consciousness: patient oriented x3 HENMT: Head: normal to inspection Eyes: General: appearance normal, both eyes and all related structures Resp: Effort & Inspection: normal respiratory effort and able to speak in complete sentences Auscultation: clear to auscultation bilaterally Cardio: Rate: regular rate Rhythm: regular rhythm Heart sounds: S1 normal heart sound present and S2 normal heart sound present GI: GI Palp: Yes Soft to palpation and No Tenderness to palpation present (GI) Neuro: General: patient oriented x3 Course Vital Signs Vital signs: Vital Signs Temperature 98.4 F 11/20/22 00:35 Pulse Rate 95 11/20/22 00:35 Respiratory Rate 20 11/20/22 00:35 Blood Pressure 145/89 H 11/20/22 00:35 Pulse Oximetry 97 11/20/22 00:35 Oxygen Delivery Room Air 11/20/22 00:35 Temperature 98.4 F 11/20/22 00:35 Pulse Rate 82 11/20/22 02:56 Respiratory Rate 20 11/20/22 03:38 Blood Pressure 128/78 11/20/22 02:56 Pulse Oximetry 97 11/20/22 02:56 Oxygen Delivery Room Air 11/20/22 00:35 MDM - URI/Sore Throat MDM Narrative Medical decision making narrative: 32-year-old female HPI as noted. Differentials as below. Lungs are clear. Patient is afebrile and heart rate normal. Suspect URI or bronchitis. Will treat with albuterol, steroids, Z-Surinder. Urine without any signs of infection. Patient updated and will be discharged home. She is in agreement with plan of care Differential Diagnosis Differential diagnosis: Likely upper respiratory infection, sinusitis and bronchitis Medical Records Attestation: I reviewed the patient's medical records. Lab Data Attestation: I reviewed the patient's lab results. Labs: Lab Results 11/20/22 Range/Units 02:53 Urine Color Dark yellow (Yellow) Urine Appearance Clear (Clear) Urine pH 5.5 (5.0-9.0) Ur Specific [place] 1.028 (1.001-1.035) Urine Protein Negative (Negative) mg/d
[2022-11-20 03:56] VITALS: BP 130/88; PULSE 85; RESP 16; O2SAT 97
== END 2022-11-20 03:57 | disposition home or self-care (01) ==
PROVIDERS: Emergency Provider Nurse Practitioner Family
DX: J06.9 Acute upper respiratory infection, unspecified (principal); J40 Bronchitis, not specified as acute or chronic; I10 Essential (primary) hypertension; K21.9 Gastro-esophageal reflux disease without esophagitis; F32.A Depression, unspecified; F41.9 Anxiety disorder, unspecified; F17.200 Nicotine dependence, unspecified, uncomplicated
CPT/HCPCS: 81003; 94640; 99283; A9270